=== PATIENT | male | born 1960 | race Caucasian/White ===

== ENCOUNTER 2017-05-14 16:01 | Inpatient (IN) | payer BC ==
[2017-05-14 16:18] VITALS: BMI 27.3
[2017-05-14] MEDS ORDERED: SODIUM CHLORIDE 1,000 ML IV SCH ×2 (16:30→21:00)
[2017-05-14 17:05] LABS: URINE APPEARANCE CLEAR; URINE BILIRUBIN NEGATIVE (NEGATIVE); URINE BLOOD 1+ (NEGATIVE); URINE COLOR LTYELLOW; URINE GLUCOSE (UA) NEGATIVE (NEGATIVE); URINE KETONE NEGATIVE (NEGATIVE); URINE LEUK ESTERASE NEGATIVE (NEGATIVE); URINE NITRITE NEGATIVE (NEGATIVE); URINE PROTEIN NEGATIVE (NEGATIVE); URINE UROBILINOGEN NEGATIVE mg/dL (0.2-1.0)
[2017-05-14 17:14] LABS: EPI CELLS RARE /HPF (FEW); URINE MUCUS RARE
[2017-05-14] MEDS ORDERED: ATORVASTATIN CA 80 MG TABLET (FP) PO ONE (17:14)
[2017-05-14] MEDS ORDERED: ASPIRIN 325 MG TABLET PO ONE (17:14)
--- NOTE | 2017-05-14 17:17 | PDOC ---
Attending Attestation - Resident Resident Name: IzabellaSoy - ED Attending Attestation I have performed the following: I have examined & evaluated the patient, The case was reviewed & discussed with the resident, I agree w/resident's findings & plan, Exceptions are as noted - HPI HPI: 05/14/17 17:32 The patient is a 56 year old male, with a significant past medical history of hypertension and elevated lipids (but not on any medication), who presents to the emergency department with acute onset of right sided numbness and tingling 1hr RETAIL SHIFT MANAGER, now resolved. Patient reports he was getting out of the car when he began to experience right arm weakness, numbness, and tingling, localized to his hand/wrist area. He also reports right leg weakness and tingling, as well as numbness to the right cheek. He denies any associated head trauma, LOC, changes in vision, headache, dizziness, or lightheadedness. He denies any chest pain, shortness of breath, diaphoresis, or palpitations. Does not take any blood thinners. No similar previous sxs. - Physicial Exam PE: 05/14/17 17:25 GENERAL: Awake, alert, and fully oriented, in no acute distress HEAD: No signs of trauma EYES: PERRLA, EOMI, sclera anicteric, conjunctiva clear ENT: Auricles normal inspection, hearing grossly normal, nares patent, oropharynx clear without exudates. Moist mucosa NECK: Normal ROM, supple, no lymphadenopathy, JVD, or masses LUNGS: Breath sounds equal, clear to auscultation bilaterally. No wheezes, and no crackles HEART: Regular rate and rhythm, normal S1 and S2, no murmurs, rubs or gallops ABDOMEN: Soft, nontender, normoactive bowel sounds. No guarding, no rebound. No masses EXTREMITIES: Normal range of motion, no edema. No clubbing or cyanosis. No cords, erythema, or tenderness NEUROLOGICAL: Normal speech, cranial nerves intact, negative pronator drift, 5/ 5 strength in all 4 extremities, normal sensation to light touch in all 4 extremities, normal cerebellar exam, normal gait, normal reflexes and tone SKIN: Warm, Dry, normal turgor, no rashes or lesions noted. - Medical Decision Making 05/14/17 17:25 56yo M hx elevated lipids (borderline, not on tx), elevated BP p/w resolved R facial, RUE and RLE numbness 1hr RETAIL SHIFT MANAGER. Vitals remarkable for hypertension to 190/ 120 and tachycardia to 110. Exam is unremarkable as symptoms have resolved, NIH stroke scale is 0. Concern for TIA vs CVA. In concert with Dr. Peacock from neurology, the decision was made to not give TPA as the patient is currently asymptomatic an NIH stroke scale is 0. Will treat conservatively with Lipitor 80 mg and aspirin 325 mg. We'll obtain MRI and admit. 05/14/17 19:47 Case discussed with resident Félix. Pt admitted to stroke bed under Dr. Orellana Case discussed in detail with admitting physician including history, physical exam and ancillary studies. Admitting physician has assumed care for the patient, will follow all pending diagnostics and will complete the evaluation and treatment. Discharge Disposition - Diagnosis TIA (transient ischemic attack) - Discharge Dispostion Condition at time of disposition: Stable Admit: Yes - Referrals Referrals: Kendra Rodriguez MD [Primary Care Provider] - - Patient Instructions - Post Discharge Activity NIH Stroke Scale - Last Known Well Date/Time & Onset Date Last Known Well: 05/14/17 Time Last Known Well: 16:15 - Initial Evaluation Level of consciousness: Alert Ask patient the month and their age: Answers both correctly Ask patient to open & close eyes; make fist and let go: Obeys both correctly Best gaze (horizontal eye movement): Normal Visual field testing: No visual field loss Facial paresis (Show teeth/raise eyebrows/close eyes tight): Normal symmetrical movement Motor Function: Left Arm: Normal Motor Function: Right Arm: Normal (extends arm 90 (or 45) degrees for 10 seconds without drift Motor Function: Left Leg: Normal (extends leg 30 degrees for 5 seconds without drift) Motor Function: Right Leg: Normal (extends leg 30 degrees for 5 seconds without drift) Limb Ataxia: No ataxia Sensory(Use pinprick test arms,legs,trunk,face/side to side): Normal Best language (Describe picture, name items, read sentences): No Aphasia Dysarthria (read several words): Normal articulation Extinction and Inattention: No abnormality - Total Score NIH Stroke Scale Score: 0
[2017-05-14 17:19] LABS: INR 0.86 (0.82-1.09); PROTHROMBIN TIME (PATIENT) 9.7 SEC (9.98-11.88)
[2017-05-14 17:26] LABS: BASO % 0.7 % (0-2.0); EOS % 0.8 % (0-4.5); HEMATOCRIT 47.9 % (35.4-49); HEMOGLOBIN 16.5 GM/dL (11.7-16.9); LYMPH % 22.6 % (8-40); MCH 32.5 pg (25.7-33.7); MCHC 34.5 g/dl (32.0-35.9); MEAN CELL VOLUME 94.1 fl (80-96); MONO % 7.5 % (3.8-10.2); NEUT % 68.4 % (42.8-82.8); PLATELET COUNT 287 K/MM3 (134-434); RBC 5.09 M/mm3 (4.00-5.60); RDW 12.3 % (11.9-15.9); WHITE BLOOD COUNT 6.4 K/mm3 (4.0-10.0)
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
--- NOTE | 2017-05-14 17:35 | PDOC ---
tPA Exclusion Checklist 0-3hr - Time Elapsed Time last known well: 03:35 - Thrombolytic Therapy Candidate Is the patient eligible for Thrombolytic Therapy?: No - Exclusion Criteria 0-3hr SBP greater than 185 or DBP greater than 110mmHg despite tx: No Recent IC/spinal surgery,head trauma or stroke w/in last 3mo: No Hx of previous IC hemorrhage, IC neoplasm, AVM or aneurysm: No Active internal bleeding: No Symptoms suggest subarachnoid hemorrhage: No CT demonstrates multilobar infarct(>1/3 cerebral hemiphere): No Arterial puncture at noncompressible site in previous 7 days: No - Ineligibility reason(s) Reasons No tPA given: Outside of window - delayed arrival (Pts. symptoms improved prior to arrival in ER), See reason(s) noted above
[2017-05-14] MEDS ORDERED: ASPIRIN 325 MG TABLET ONE (17:39)
[2017-05-14] MEDS ORDERED: ATORVASTATIN CA 80 MG TABLET (FP) ONE (17:40)
[2017-05-14 18:24] LABS: ANION GAP 9 (8-16); BILIRUBIN,TOTAL 0.3 mg/dL (0.2-1.0); BLOOD UREA NITROGEN 20 mg/dL (7-18); CALCIUM 8.8 mg/dL (8.5-10.1); CHLORIDE 108 mmol/L (98-107); CO2 25 mmol/L (21-32); CREATININE 0.9 mg/dL (0.7-1.3); GLUCOSE,RANDOM 91 mg/dL (74-106); POTASSIUM 4.2 mmol/L (3.5-5.1); SGOT/AST 26 U/L (15-37); SGPT/ALT 43 U/L (12-78); SODIUM 142 mmol/L (136-145); TOT PROT 7.2 g/dl (6.4-8.2)
[2017-05-14 18:25] LABS: ALK PHOS 54 U/L (45-117)
--- NOTE | 2017-05-14 18:27 | CON.NEURO ---
Consult Consult Specialty:: NEUROLOGY-LYUDMILA RICHTER Reason for Consultation:: TIA - History of Present Illness History of Present Illness: 56 y/o gentleman with hx. of hyperlipidemia. States 1 hour prior to arrival in ER had sudden onset sense of euphoria lasting minutes foillowed by right face numbness and tingling and right ulnar border of hand and patchy right leg numbness-these lasted for an hour and resolved. In addition had right leg subjective sense of weakness that lasted 20mns. Now has no new complaints. BP noted to be elevated . BP on arrival noted to be 190/130, came down to 174/116 spontaneously. NIH score-0 to my exam. - Smoking History Smoking history: Never smoked Home Medications - Allergies Allergies/Adverse Reactions: Allergies Allergy/AdvReac Type Severity Reaction Status Date / Time No Known Allergies Allergy Verified 05/14/17 16:17 - Home Medications Home Medications: Ambulatory Orders NK [No Known Home Medication] 05/14/17 Physical Exam-Neuro Vital Signs: Vital Signs Temperature 98.1 F 05/14/17 16:13 Pulse Rate 88 05/14/17 17:54 Respiratory Rate 15 05/14/17 17:54 Blood Pressure 169/112 05/14/17 17:54 O2 Sat by Pulse Oximetry (%) 98 05/14/17 17:54 Labs: CBC, BMP 05/14/17 14:55 INR, PTT INR 0.86 (0.82-1.09) 05/14/17 14:55 - Neuro Exam Level Of Consciousness: Yes: Alert, Oriented to Person, Oriented to Place, Oriented to Time Eyes: Yes: PERRL, PERRLA Speech: WNL Dominant Hand: Right Mini Mental Exam: Normal Gag: Present DTR's: 2+ Left Bicep, 2+ Right Bicep, 2+ Left Tricep, 2+ Right Tricep, 2+ Left Brachioradialis, 2+ Right Brachioradialis, 2+ Left Achilles, 2+ Right Achilles Response to light touch: Normal Response to pain prick: Normal Motor Strength: 5/5: Left Arm, Right Arm, Left Leg, Right Leg Gait: Normal (normal heel/toe walk.) Imaging - Results Cat Scan: Image Reviewed (Reported normal. Has basilar calcifications and calcification at bifurcation of MCA.) Assessment/Plan Pt. with vasculkar risk factors presented with sensory and motor symptoms, TIA, now without neurologic symptoms and normal exam. He is not a candidate for tPA. Will admit, stroke w/u including MRI brain, carotid doppler study, telemetry. Would place on [id number] daily. Thank you, Horacio Peacock MD [phone]
[2017-05-14] MEDS ORDERED: LISINOPRIL 5 MG TABLET (FP) ONE (21:10)
[2017-05-14] MEDS ORDERED: amLODIPine BESYLATE 5 MG TABLET (FP) ONE (21:10)
[2017-05-14] MEDS: LISINOPRIL 10 MG TABLET (FP) PO SCH (21:23)
[2017-05-14] MEDS: amLODIPine BESYLATE 10 MG TABLET (FP) PO SCH (21:23)
--- NOTE | 2017-05-14 21:30 | PN ---
Teaching Attending Note Name of Resident: Tyler Pop ATTENDING PHYSICIAN STATEMENT I saw and evaluated the patient. Chart, data, imaging reviewed. I reviewed the resident's note and discussed the case with the resident. I agree with the resident's findings and plan as documented. SUBJECTIVE: 56 y/o man with hx of uncontrolled HTN c/o right facial, upper extremity, and lower extremity numbness which started at about 3 pm on 05/14/16 after he left his car and last for about 30-45 mins. He endorse also right lower extremity weakness. His symptoms resolved completed upon arrival to ER. HE denied any headaches, dizziness, slurred speech, or problems with swallowing. He has not seen his PCP in a long time and has not been on medications for his HTN. Evaluated by neurology and was not a candidate for TPA. Initially his NIH scale was assessed as 0. CT of head showed no acute bleeds or infarcts. ABCD2 score I calculated as 3. Received high dose atorvastatin in ER , ASA. OBJECTIVE: Last Vital Signs Temp Pulse Resp BP Pulse Ox 98.1 F 74 16 154/102 99 05/14/17 16:13 05/14/17 20:23 05/14/17 20:23 05/14/17 20:23 05/14/17 20:23 General- NAD, appears comfortable, aaox3 HEENT- at, nc, no sinus tenderness neck- supple, no jvd cv-s1+s2+ rrr, no murmurs chest- cta b/l Neuro- CN 3-12 grossly intact, fluent speech, patellar reflexes 2+ b/l, motor intact in 4 extremities Abnormal Lab Results 05/14/17 05/14/17 05/14/17 05:20 14:55 14:55 MPV 7.0 L PT with INR 9.70 L Chloride BUN Urine Blood 1+ H 05/14/17 17:30 MPV PT with INR Chloride 108 H BUN [address] of head- no focal bleeds or infarcts seen EKG- NSR, likely LVH ASSESSMENT AND PLAN: #TIA r/o CVA - ABCD2 score- 3, normal head CT, not candidate for TPA as per neurology -admit to telemetry -f/u MRI report -neuro checks q4hrs -ASA 81mg po daily -high dose atorvastatin -transthoracic echo -b/l carotid duplex study -neurology f/u #Uncontrolled HTN - stage 2 -amlodipine 10mg daily -lisinopril 10mg daily -f/u with PCP #DVT ppx -heparin sc #Diet -2 g Na diet
--- NOTE | 2017-05-14 21:33 | HP ---
CHIEF COMPLAINT: numbness and tingling PCP: none HISTORY OF PRESENT ILLNESS: 56 year old male with a history of hypertension presents with the complaint of numbness and tingling on the R side of his face, right arm, and right leg. He states that the symptoms occurred around 3pm while he was driving his car and lasted for around 30 minutes. He states that he felt his jaw go numb and felt like he couldn't feel very much with his medial R arm and R leg. He states the feeling disappeared quickly but decided to come to the emergency room to get evaluated. Patient states he has high blood pressure, but doesn't take any medications for it and hasn't seen a primary care doctor in 5 years. He denies any associated motor weakness, chest pain, shortness of breath, blurry vision, double vision, nausea, vomiting. ER course was notable for: (1) EKG NSR possible atrial enlargement (2) Hypertensive at 169/112 (3) Recent Travel: none PAST MEDICAL HISTORY: hypertension PAST SURGICAL HISTORY: appendectomy for appendicitis w/ peritonitis Social History: Smoking: none Alcohol: 1 beer a day Drugs: none Family History: Allergies No Known Allergies Allergy (Verified 05/14/17 16:17) HOME MEDICATIONS: Home Medications Medication Instructions Recorded NK [No Known Home Medication] 05/14/17 REVIEW OF SYSTEMS CONSTITUTIONAL: Absent: fever, chills, diaphoresis, generalized weakness, malaise, loss of appetite, weight change HEENT: Absent: rhinorrhea, nasal congestion, throat pain, throat swelling, difficulty swallowing, mouth swelling, ear pain, eye pain, visual changes CARDIOVASCULAR: Absent: chest pain, syncope, palpitations, irregular heart rate, lightheadedness , peripheral edema RESPIRATORY: Absent: cough, shortness of breath, dyspnea with exertion, orthopnea, wheezing, stridor, hemoptysis GASTROINTESTINAL: Absent: abdominal pain, abdominal distension, nausea, vomiting, diarrhea, constipation, melena, hematochezia GENITOURINARY: Absent: dysuria, frequency, urgency, hesitancy, hematuria, flank pain, genital pain MUSCULOSKELETAL: Absent: myalgia, arthralgia, joint swelling, back pain, neck pain SKIN: Absent: rash, itching, pallor HEMATOLOGIC/IMMUNOLOGIC: Absent: easy bleeding, easy bruising, lymphadenopathy, frequent infections ENDOCRINE: Absent: unexplained weight gain, unexplained weight loss, heat intolerance, cold intolerance NEUROLOGIC: Absent: headache, focal weakness or paresthesias, dizziness, unsteady gait, seizure, mental status changes, bladder or bowel incontinence PSYCHIATRIC: Absent: anxiety, depression, suicidal or homicidal ideation, hallucinations. PHYSICAL EXAMINATION Vital Signs - 24 hr 05/14/17 05/14/17 05/14/17 16:13 17:08 17:13 Temperature 98.1 F Pulse Rate 114 H Pulse Rate [ 73 Apical] Respiratory 18 16 Rate Blood Pressure 193/130 Blood Pressure 174/116 [Right Arm] O2 Sat by Pulse 100 98 98 Oximetry (%) 05/14/17 05/14/17 17:54 20:23 Temperature Pulse Rate Pulse Rate [ 88 74 Apical] Respiratory 15 16 Rate Blood Pressure Blood Pressure 169/112 154/102 [Right Arm] O2 Sat by Pulse 98 99 Oximetry (%) GENERAL: Awake, alert, and fully oriented, in no acute distress. HEAD: Normal with no signs of trauma. EYES: Pupils equal, round and reactive to light, extraocular movements intact, sclera anicteric, conjunctiva clear. No lid lag. EARS, NOSE, THROAT: Ears normal, nares patent, oropharynx clear without exudates. Moist mucous membranes. NECK: Normal range of motion, supple without lymphadenopathy, JVD, or masses. LUNGS: Breath sounds equal, clear to auscultation bilaterally. No wheezes, and no crackles. No accessory muscle use. HEART: Regular rate and rhythm, normal S1 and S2 without murmur, rub or gallop. ABDOMEN: Soft, nontender, not distended, normoactive bowel sounds, no guarding, no rebound, no masses. No hepatomegaly or splenomegaly. MUSCULOSKELETAL: Normal range of motion at all joints. No bony deformities or tenderness. No CVA tenderness. UPPER EXTREMITIES: 2+ pulses, warm, well-perfused. No cyanosis. No clubbing. No peripheral edema. LOWER EXTREMITIES: 2+ pulses, warm, well-perfused. No calf tenderness. No peripheral edema. NEUROLOGICAL: Cranial nerves II-XII intact. Normal speech. Normal gait. PSYCHIATRIC: Cooperative. Good eye contact. Appropriate mood and affect. SKIN: Warm, dry, normal turgor, no rashes or lesions noted, normal capillary refill. Laboratory Results - last 24 hr 05/14/17 05/14/17 05/14/17 05:20 14:55 14:55 WBC 6.4 Cancelled Corrected WBC (auto) Cancelled RBC 5.09 Cancelled Hgb 16.5 Cancelled Hct 47.9 Cancelled MCV 94.1 Cancelled MCH 32.5 Cancelled MCHC 34.5 Cancelled RDW 12.3 Cancelled Plt Count 287 Cancelled MPV 7.0 L Cancelled Neutrophils % 68.4 Cancelled Lymphocytes % 22.6 Cancelled Monocytes % 7.5 Cancelled Eosinophils % 0.8 Cancelled Basophils % 0.7 Cancelled Nucleated RBC % Cancelled Platelet Estimate Cancelled Platelet Comment Cancelled PT with INR 9.70 L INR 0.86 Sodium Potassium Chloride Carbon Dioxide Anion Gap BUN Creatinine Creat Clearance w eGFR Random Glucose Calcium Total Bilirubin AST ALT Alkaline Phosphatase Creatine Kinase Troponin I Total Protein Albumin Triglycerides Cholesterol Total LDL Cholesterol HDL Cholesterol Urine Color Urine Appearance Urine pH Ur Specific [place] Urine Protein Urine Glucose (UA) Urine Ketones Urine Blood Urine Nitrite Urine Bilirubin Urine Urobilinogen Ur Leukocyte Esterase Urine WBC (Auto) Urine RBC (Auto) Ur Epithelial Cells Urine Mucus Blood Type Antibody Screen 05/14/17 05/14/17 05/14/17 14:55 14:55 14:55 WBC Corrected WBC (auto) RBC Hgb Hct MCV MCH MCHC RDW Plt Count MPV Neutrophils % Lymphocytes % Monocytes % Eosinophils % Basophils % Nucleated RBC % Platelet Estimate Platelet Comment PT with INR INR Sodium Cancelled Potassium Cancelled Chloride Cancelled Carbon Dioxide Cancelled Anion Gap Cancelled BUN Cancelled Creatinine Cancelled Creat Clearance w eGFR Cancelled Random Glucose Cancelled Calcium Cancelled Total Bilirubin Cancelled AST Cancelled ALT Cancelled Alkaline Phosphatase Cancelled Creatine Kinase Cancelled Troponin I Cancelled Total Protein Cancelled Albumin Cancelled Triglycerides Cancelled Cholesterol Cancelled Total LDL Cholesterol Cancelled HDL Cholesterol Cancelled Urine Color Ltyellow Urine Appearance Clear Urine pH 5.0 Ur Specific [place] 1.019 Urine Protein Negative Urine Glucose (UA) Negative Urine Ketones Negative Urine Blood 1+ H Urine Nitrite Negative Urine Bilirubin Negative Urine Urobilinogen Negative Ur Leukocyte Esterase Negative Urine WBC (Auto) <1 Urine RBC (Auto) 2 Ur Epithelial Cells Rare Urine Mucus Rare Blood Type O POSITIVE Antibody Screen Cancelled 05/14/17 05/14/17 05/14/17 17:30 17:30 18:45 WBC Corrected WBC (auto) RBC Hgb Hct MCV MCH MCHC RDW Plt Count MPV Neutrophils % Lymphocytes % Monocytes % Eosinophils % Basophils % Nucleated RBC % Platelet Estimate Platelet Comment PT with INR INR Sodium 142 Potassium 4.2 Chloride 108 H Carbon Dioxide 25 Anion Gap 9 BUN 20 H Creatinine 0.9 Creat Clearance w eGFR > 60 Random Glucose 91 Calcium 8.8 Total Bilirubin 0.3 AST 26 ALT 43 Alkaline Phosphatase 54 Creatine Kinase Troponin I < 0.02 Total Protein 7.2 Albumin 4.0 Triglycerides Cholesterol Total LDL Cholesterol HDL Cholesterol Urine Color Urine Appearance Urine pH Ur Specific [place] Urine Protein Urine Glucose (UA) Urine Ketones Urine Blood Urine Nitrite Urine Bilirubin Urine Urobilinogen Ur Leukocyte Esterase Urine WBC (Auto) Urine RBC (Auto) Ur Epithelial Cells Urine Mucus Blood Type O POSITIVE Antibody Screen Negative Home Medication List Medication Instructions Recorded Confirmed Type NK [No Known Home Medication] 05/14/17 05/14/17 History Active Medications Generic Name Dose Route Start Last Admin Trade Name Freq PRN Reason Stop Dose Admin Amlodipine Besylate 10 mg 05/14/17 21:15 05/14/17 21:23 Norvasc - PO 10 mg DAILY [facility] Administration Aspirin 81 mg 05/15/17 10:00 Asa - PO DAILY [facility] Atorvastatin Calcium 80 mg 05/15/17 10:00 Lipitor - PO DAILY [facility] Heparin Sodium (Porcine) 5,000 unit 05/14/17 22:00 Heparin - SQ TID [facility] Sodium Chloride 1,000 mls @ 42 mls/hr 05/14/17 21:00 05/14/17 21:03 Normal Saline - IV Not Given [facility] Lisinopril 10 mg 05/14/17 21:15 05/14/17 21:23 Prinivil PO 10 mg DAILY [facility] Administration ASSESSMENT/PLAN: 56 year old male with a history of hypertension presented to the hospital with unilateral numbness and tingling suggestive of TIA #Transient Ischemic Attack: ABCD2 TIA score of 3 warrants admission- symptoms have since resolved, TPA not indicated -admit to telemetry for cardiac monitoring -neurochecks q4h -EKG negaive -CT brain negative -MRI brain negative -order carotid doppler -order echocardiogram -A1C measurement -lipid profile -ASA 325 given in ED, continue with 81mg QD -Atorvastatin 80 given in ED, continue 80mg if tolerated -BP control with amlodipine and lisinopril -Neuro consult appreciated #Hypertension: patient was hypertensive on admission at 169/112 -Start amlodipine 10mg PO QD -Start lisinopril 10mg PO QD -BP check in AM #FEN Sodium controlled diet No standing fluids Check BMP in AM, replete lytes as necessary #Prophylaxis -Heparin 5000 SubQ TID #Disposition -Admit to telemetry for monitoring Visit type - Emergency Visit Emergency Visit: Yes Care time: The patient presented to the Emergency Department on the above date and was hospitalized for further evaluation of their emergent condition. - New Patient This patient is new to me today: No - Critical Care Critical Care patient: No
[2017-05-14] MEDS ORDERED: HEPARIN NA (PORCINE) 5,000 UNITS/ML 1ML VIAL ONE (22:07)
[2017-05-14] MEDS: HEPARIN NA (PORCINE) 5,000 UNITS/ML 1ML VIAL SQ SCH (22:24)
[2017-05-15] MEDS: HEPARIN NA (PORCINE) 5,000 UNITS/ML 1ML VIAL SQ SCH ×3 (05:29→21:23)
[2017-05-15 07:55] LABS: BASO % 0.9 % (0-2.0); EOS % 1.7 % (0-4.5); HEMATOCRIT 48.6 % (35.4-49); HEMOGLOBIN 16.5 GM/dL (11.7-16.9); LYMPH % 35.2 % (8-40); MCH 32.1 pg (25.7-33.7); MEAN CELL VOLUME 94.4 fl (80-96); MEAN PLT VOLUME 6.9 fl (7.5-11.1); MONO % 7.8 % (3.8-10.2); NEUT % 54.4 % (42.8-82.8); PLATELET COUNT 290 K/MM3 (134-434); RBC 5.14 M/mm3 (4.00-5.60); RDW 12.6 % (11.9-15.9)
[2017-05-15 08:09] LABS: CHLORIDE 105 mmol/L (98-107); POTASSIUM 4.1 mmol/L (3.5-5.1); SODIUM 140 mmol/L (136-145)
[2017-05-15 08:13] LABS: ANION GAP 11 (8-16); BLOOD UREA NITROGEN 15 mg/dL (7-18); CALCIUM 8.7 mg/dL (8.5-10.1); CHOLESTEROL 260 mg/dL (50-200); CO2 24 mmol/L (21-32); CREATININE 0.9 mg/dL (0.7-1.3); GLUCOSE,RANDOM 92 mg/dL (74-106); MAGNESIUM 2.2 mg/dL (1.8-2.4); PHOSPHOROUS 3.2 mg/dL (2.5-4.9); TRIGLYCERIDES 319 mg/dL (35-160)
[2017-05-15 08:39] LABS: HDL CHOLESTEROL 41 mg/dL (40-60); LDL CHOLESTEROL (ONLY SJRH) 174 mg/dL (5-100)
[2017-05-15] MEDS ORDERED: ATORVASTATIN CA 80 MG TABLET (FP) PO SCH ×2 (10:00)
[2017-05-15] MEDS: ASPIRIN 81 MG CHEWABLE TABLETS PO SCH (10:34)
[2017-05-15] MEDS: LISINOPRIL 10 MG TABLET (FP) PO SCH (10:34)
[2017-05-15] MEDS: amLODIPine BESYLATE 10 MG TABLET (FP) PO SCH (10:34)
--- NOTE | 2017-05-15 11:40 | EKG ---
Test Reason : Blood Pressure : / mmHG Vent. Rate : 099 BPM Atrial Rate : 099 BPM P-R Int : 162 ms QRS Dur : 090 ms QT Int : 348 ms P-R-T Axes : 050 -02 022 degrees QTc Int : 446 ms NORMAL SINUS RHYTHM POSSIBLE LEFT ATRIAL ENLARGEMENT POSSIBLE ANTERIOR INFARCT , AGE UNDETERMINED ABNORMAL ECG NO PREVIOUS ECGS AVAILABLE Confirmed by MD SHELLY, ERASMO ([id number]) on 05/15/2017 11:40:19 AM Referred By: Confirmed By:ERASMO BRAVO MD
--- NOTE | 2017-05-15 16:16 | PN ---
Progress Note (short form) - Note Progress Note: Subjective: no fever or chills, no cp or ABd pain. no weakness , numbness or tingling in arms Objective: Vital Signs: Last Vital Signs Temp Pulse Resp BP Pulse Ox 98.4 F 84 18 142/92 98 05/15/17 13:30 05/15/17 13:30 05/15/17 13:30 05/15/17 13:30 05/15/17 09:00 Laboratory Results - last 24 hr 05/14/17 05/14/17 05/14/17 05:20 14:55 14:55 WBC 6.4 Cancelled Corrected WBC (auto) Cancelled RBC 5.09 Cancelled Hgb 16.5 Cancelled Hct 47.9 Cancelled MCV 94.1 Cancelled MCH 32.5 Cancelled MCHC 34.5 Cancelled RDW 12.3 Cancelled Plt Count 287 Cancelled MPV 7.0 L Cancelled Neutrophils % 68.4 Cancelled Lymphocytes % 22.6 Cancelled Monocytes % 7.5 Cancelled Eosinophils % 0.8 Cancelled Basophils % 0.7 Cancelled Nucleated RBC % Cancelled Platelet Estimate Cancelled Platelet Comment Cancelled PT with INR 9.70 L INR 0.86 Sodium Potassium Chloride Carbon Dioxide Anion Gap BUN Creatinine Creat Clearance w eGFR Random Glucose Hemoglobin A1c % Calcium Phosphorus Magnesium Total Bilirubin AST ALT Alkaline Phosphatase Creatine Kinase Troponin I Total Protein Albumin Triglycerides Cholesterol Total LDL Cholesterol HDL Cholesterol Urine Color Urine Appearance Urine pH Ur Specific [place] Urine Protein Urine Glucose (UA) Urine Ketones Urine Blood Urine Nitrite Urine Bilirubin Urine Urobilinogen Ur Leukocyte Esterase Urine WBC (Auto) Urine RBC (Auto) Ur Epithelial Cells Urine Mucus Blood Type Antibody Screen 05/14/17 05/14/17 05/14/17 14:55 14:55 14:55 WBC Corrected WBC (auto) RBC Hgb Hct MCV MCH MCHC RDW Plt Count MPV Neutrophils % Lymphocytes % Monocytes % Eosinophils % Basophils % Nucleated RBC % Platelet Estimate Platelet Comment PT with INR INR Sodium Cancelled Potassium Cancelled Chloride Cancelled Carbon Dioxide Cancelled Anion Gap Cancelled BUN Cancelled Creatinine Cancelled Creat Clearance w eGFR Cancelled Random Glucose Cancelled Hemoglobin A1c % Calcium Cancelled Phosphorus Magnesium Total Bilirubin Cancelled AST Cancelled ALT Cancelled Alkaline Phosphatase Cancelled Creatine Kinase Cancelled Troponin I Cancelled Total Protein Cancelled Albumin Cancelled Triglycerides Cancelled Cholesterol Cancelled Total LDL Cholesterol Cancelled HDL Cholesterol Cancelled Urine Color Ltyellow Urine Appearance Clear Urine pH 5.0 Ur Specific [place] 1.019 Urine Protein Negative Urine Glucose (UA) Negative Urine Ketones Negative Urine Blood 1+ H Urine Nitrite Negative Urine Bilirubin Negative Urine Urobilinogen Negative Ur Leukocyte Esterase Negative Urine WBC (Auto) <1 Urine RBC (Auto) 2 Ur Epithelial Cells Rare Urine Mucus Rare Blood Type O POSITIVE Antibody Screen Cancelled 05/14/17 05/14/17 05/14/17 17:30 17:30 18:45 WBC Corrected WBC (auto) RBC Hgb Hct MCV MCH MCHC RDW Plt Count MPV Neutrophils % Lymphocytes % Monocytes % Eosinophils % Basophils % Nucleated RBC % Platelet Estimate Platelet Comment PT with INR INR Sodium 142 Potassium 4.2 Chloride 108 H Carbon Dioxide 25 Anion Gap 9 BUN 20 H Creatinine 0.9 Creat Clearance w eGFR > 60 Random Glucose 91 Hemoglobin A1c % Calcium 8.8 Phosphorus Magnesium Total Bilirubin 0.3 AST 26 ALT 43 Alkaline Phosphatase 54 Creatine Kinase Troponin I < 0.02 Total Protein 7.2 Albumin 4.0 Triglycerides Cholesterol Total LDL Cholesterol HDL Cholesterol Urine Color Urine Appearance Urine pH Ur Specific [place] Urine Protein Urine Glucose (UA) Urine Ketones Urine Blood Urine Nitrite Urine Bilirubin Urine Urobilinogen Ur Leukocyte Esterase Urine WBC (Auto) Urine RBC (Auto) Ur Epithelial Cells Urine Mucus Blood Type O POSITIVE Antibody Screen Negative 05/15/17 05/15/17 05/15/17 06:20 06:20 06:20 WBC 6.0 Corrected WBC (auto) RBC 5.14 Hgb 16.5 Hct 48.6 MCV 94.4 MCH 32.1 MCHC 34.0 RDW 12.6 Plt Count 290 MPV 6.9 L Neutrophils % 54.4 D Lymphocytes % 35.2 D Monocytes % 7.8 Eosinophils % 1.7 D Basophils % 0.9 Nucleated RBC % Platelet Estimate Platelet Comment PT with INR INR Sodium 140 Potassium 4.1 Chloride 105 Carbon Dioxide 24 Anion Gap 11 BUN 15 D Creatinine 0.9 Creat Clearance w eGFR Random Glucose 92 Hemoglobin A1c % 5.0 Calcium 8.7 Phosphorus 3.2 Magnesium 2.2 Total Bilirubin AST ALT Alkaline Phosphatase Creatine Kinase Troponin I Total Protein Albumin Triglycerides 319 H Cholesterol 260 H Total LDL Cholesterol 174 H HDL Cholesterol 41 Urine Color Urine Appearance Urine pH Ur Specific [place] Urine Protein Urine Glucose (UA) Urine Ketones Urine Blood Urine Nitrite Urine Bilirubin Urine Urobilinogen Ur Leukocyte Esterase Urine WBC (Auto) Urine RBC (Auto) Ur Epithelial Cells Urine Mucus Blood Type Antibody Screen Physical Exam: NAd Cv: RRR, no MRG Lungs : CTAB ext: no edema Abd: soft, NT, ND , NL BS Neuro: EOMI, no facial droop, round equal pupils reactive to light . tongue and uvula at mid line . strength 5/5 in upper and lower extremities proximally and distally, sensation to light touch. nose to finger NL Imaging: MRI, and CT of brain reports reviewed. Assessment/Plan: 56 y/o gentleman with h/o untreated HTN and no medical f/u who presented with R sided numbness. 1- TIA : no stroke on MRI. - secondary prophylaxis - asa - lipitor ( LDL 178) - echo in am - tele : with no A fib . need holter as outpt . - carotid doppler with no high grade stenosis - A1c 5. - stresed on importance of BP cntrol and medical f/u 2- HTN: cont meds 3- DVT px dc tomorrow after 24 hr of tele monitoring Visit type - Emergency Visit Emergency Visit: Yes ED Registration Date: 05/14/17 Care time: The patient presented to the Emergency Department on the above date and was hospitalized for further evaluation of their emergent condition. - New Patient This patient is new to me today: No - Critical Care Critical Care patient: No
[2017-05-16] MEDS: HEPARIN NA (PORCINE) 5,000 UNITS/ML 1ML VIAL SQ SCH ×2 (06:25→13:30)
--- NOTE | 2017-05-16 08:53 | PN ---
Progress Note (short form) - Note Progress Note: 56 y/o gentleman with hx. of hyperlipidemia. States 1 hour prior to arrival in ER had sudden onset sense of euphoria lasting minutes foillowed by right face numbness and tingling and right ulnar border of hand and patchy right leg numbness-these lasted for an hour and resolved. In addition had right leg subjective sense of weakness that lasted 20mns. Now has no new complaints. BP noted to be elevated . BP on arrival noted to be 190/130, came down to 174/116 spontaneously. NIH score-0 to my exam. FU : no new c/o , no further numbness MRI BRAIN -- no acute infarct Dopplers: min atherosclerotic disease - Smoking History Smoking history: Never smoked Home Medications - Allergies Allergies/Adverse Reactions: Allergies Allergy/AdvReac Type Severity Reaction Status Date / Time No Known Allergies Allergy Verified 05/14/17 16:17 - Home Medications Home Medications: Ambulatory Orders NK [No Known Home Medication] 05/14/17 Physical Exam-Neuro Vital Signs: Vital Signs Temperature 97.7 F 05/16/17 06:00 Pulse Rate 77 05/16/17 06:00 Respiratory Rate 16 05/16/17 06:00 Blood Pressure 138/89 05/16/17 06:00 O2 Sat by Pulse Oximetry (%) 98 05/15/17 21:00 Labs: CBCD WBC 6.0 K/mm3 (4.0-10.0) 05/15/17 06:20 RBC 5.14 M/mm3 (4.00-5.60) 05/15/17 06:20 Hgb 16.5 GM/dL (11.7-16.9) 05/15/17 06:20 Hct 48.6 % (35.4-49) 05/15/17 06:20 MCV 94.4 fl (80-96) 05/15/17 06:20 MCHC 34.0 g/dl (32.0-35.9) 05/15/17 06:20 RDW 12.6 % (11.9-15.9) 05/15/17 06:20 Plt Count 290 K/MM3 (134-434) 05/15/17 06:20 MPV 6.9 fl (7.5-11.1) L 05/15/17 06:20 CMP Sodium 140 mmol/L (136-145) 05/15/17 06:20 Potassium 4.1 mmol/L (3.5-5.1) 05/15/17 06:20 Chloride 105 mmol/L (98-107) 05/15/17 06:20 Carbon Dioxide 24 mmol/L (21-32) 05/15/17 06:20 Anion Gap 11 (8-16) 05/15/17 06:20 BUN 15 mg/dL (7-18) D 05/15/17 06:20 Creatinine 0.9 mg/dL (0.7-1.3) 05/15/17 06:20 Creat Clearance w eGFR > 60 (>60) 05/14/17 17:30 Calcium 8.7 mg/dL (8.5-10.1) 05/15/17 06:20 Total Bilirubin 0.3 mg/dL (0.2-1.0) 05/14/17 17:30 AST 26 U/L (15-37) 05/14/17 17:30 ALT 43 U/L (12-78) 05/14/17 17:30 Alkaline Phosphatase 54 U/L (45-117) 05/14/17 17:30 Total Protein 7.2 g/dl (6.4-8.2) 05/14/17 17:30 Albumin 4.0 g/dl (3.4-5.0) 05/14/17 17:30 - Neuro Exam Level Of Consciousness: Yes: Alert, Oriented to Person, Oriented to Place, Oriented to Time Eyes: Yes: PERRL, PERRLA Speech: WNL Dominant Hand: Right Mini Mental Exam: Normal Gag: Present DTR's: 2+ Left Bicep, 2+ Right Bicep, 2+ Left Tricep, 2+ Right Tricep, 2+ Left Brachioradialis, 2+ Right Brachioradialis, 2+ Left Achilles, 2+ Right Achilles Response to light touch: Normal Response to pain prick: Normal Motor Strength: 5/5: Left Arm, Right Arm, Left Leg, Right Leg Gait: Normal (normal heel/toe walk.) Imaging - Results Cat Scan: Image Reviewed (Reported normal. Has basilar calcifications and calcification at bifurcation of MCA.) Assessment/Plan Pt. with vasculkar risk factors presented with sensory and motor symptoms, TIA, now without neurologic symptoms and normal exam. likely small vessel (thalamic ) given distribution and RF agree ASA, statin and BP control would do middle or [employer] principal holter OK to dc from neuro-standpoint outpt FU thanks Dr Null [phone]
[2017-05-16] MEDS: LISINOPRIL 10 MG TABLET (FP) PO SCH (10:25)
[2017-05-16] MEDS: amLODIPine BESYLATE 10 MG TABLET (FP) PO SCH (10:25)
[2017-05-16] MEDS: ASPIRIN 81 MG CHEWABLE TABLETS PO SCH (10:26)
[2017-05-16 12:05] VITALS: BP 138/94; PULSE 74; TEMP 97.4
--- NOTE | 2017-05-16 15:27 | PN ---
Teaching Attending Note Name of Resident: Tyler Pop ATTENDING PHYSICIAN STATEMENT I saw and evaluated the patient. I reviewed the resident's note and discussed the case with the resident. I agree with the resident's findings and plan as documented. SUBJECTIVE: No fever or chills. has no numbness tingling or weakness. OBJECTIVE: NAd Cv: RRR, no MRG Lungs : CTAB ext: no edema Abd: soft, NT, ND , NL BS Neuro: EOMI, no facial droop, round equal pupils reactive to light . tongue and uvula at mid line . strength 5/5 in upper and lower extremities proximally and distally, sensation to light touch. nose to finger NL Assessment/Plan: 56 y/o gentleman with h/o untreated HTN and no medical f/u who presented with R sided numbness. 1- TIA : no stroke on MRI. - asa - lipitor ( LDL 178) . give 40 of lipitor , also expected to lower TG - echo with no significant abn - tele : with no A fib . need holter as outpt . - carotid doppler with no high grade stenosis - A1c 5. - f/u with card and neuro as out pt 2- HTN: cont meds dc home
--- NOTE | 2017-05-16 16:18 | DS ---
Physical Exam: SUBJECTIVE: Patient seen and examined at bedside. No acute complaints today. No more paresthesias reported. OBJECTIVE: Vital Signs Period Temp Pulse Resp BP Sys/Kulkarni Pulse Ox Last 24 Hr 97.4 F-98.3 F 74-81 16-20 133-156/83-96 97-98 PHYSICAL EXAM GENERAL: The patient is awake, alert, and fully oriented, in no acute distress. HEAD: Normal with no signs of trauma. EYES: PERRL, extraocular movements intact, sclera anicteric, conjunctiva clear. ENT: Ears normal, nares patent, oropharynx clear without exudates, moist mucous membranes. NECK: Trachea midline, full range of motion, supple. LUNGS: Breath sounds equal, clear to auscultation bilaterally, no wheezes, no crackles, no accessory muscle use. HEART: Regular rate and rhythm, S1, S2 without murmur, rub or gallop. ABDOMEN: Soft, nontender, nondistended, normoactive bowel sounds, no guarding, no rebound, no hepatosplenomegaly, no masses. EXTREMITIES: 2+ pulses, warm, well-perfused, no edema. NEUROLOGICAL: Cranial nerves II through XII grossly intact. Normal speech, gait not observed. PSYCH: Normal mood, normal affect. SKIN: Warm, dry, normal turgor, no rashes or lesions noted. HOSPITAL COURSE: Date of Admission:05/14/17 56 year old male with a history of hypertension presented with the complaint of numbness and tingling on the R side of his face, right arm, and right leg. He stated that the symptoms occurred around 3pm while he was driving his car and lasted for around 30 minutes. He stated that he felt his jaw go numb and felt like he couldn't feel very much with his medial R arm and R leg. Patient was admitted for the treatment of transient ischemic attack. Patient has not seen a primary care physician in 5 years. Patient was hypertensive in the emergency room and it was found that his cholesterol was elevated with a high LDL. Neurology saw patient and stated that he was not a candidate for TPA. Patient's blood pressure was controlled on amlodopine 10 and lisinopril 10. He was treated with aspirin and high-intensity statin. Patient was observed on telemetry with no acute events. Echocardiogram and carotid dopplers were performed and were negative for any pathologic process. Patient was with instructions to follow with his precast molder, his PCP, and counseled on importance of controlling his blood pressure, cholesterol and on diet and exercise. Date of Discharge: 05/16/17 Minutes to complete discharge: 35 Discharge Summary Reason For Visit: TCI Current Active Problems Hypercholesteremia (Chronic) Hypertension (Chronic) Condition: Improved - Instructions Diet, Activity, Other Instructions: You were admitted to the hospital for the evaluation and treatment of TIA ( transient ischemic attack) -This likely resulted due to your high blood pressure and high cholesterol. -Your echocardiogram and carotid dopplers did not show any significant abnormalities. -We treated you in the hospital with aspirin, atorvastatin for your cholesterol , and the blood pressure medications norvasc and lisinopril Medical Recommendations: 1. Take Atorvastatin 40mg by mouth once a day 2. Take Aspirin 81mg by mouth once a day 3. Take Amlodipine (norvasc) 10mg by mouth once a day 4. Take Lisinopril 10mg by mouth once a day 5. Make an appointment with a precast molder within 2 weeks of discharge to discuss further preventative care. We will provide a referral to Dr. Duong. 6. Please make an appointment with a primary care physician within 1 week of discharge. If you don't have one, please make an appointment in our outpatient office with Dr. Vidal Shannon. 7. Please make an appointment with neurologist Dr. Mancuso within 2 weeks of discharge - need repeat lipid profile in 6-8 weeks . If you experience any more numbness, tingling, weakness, or loss of sensation, please return to the emergency room immediately. Referrals: Vidal Shannon MD [Staff Physician] - 1 Week James Mancuso DO [Staff Physician] - 2 Weeks Rui Hernandez MD [Staff Physician] - 1 Week Disposition: HOME - Home Medications Comprehensive Discharge Medication List: Ambulatory Orders Amlodipine Besylate [Norvasc -] 10 mg PO DAILY #30 tablet 05/16/17 Aspirin [ASA -] 81 mg PO DAILY #30 tab.chew 05/16/17 Atorvastatin Ca [Lipitor] 40 mg PO HS #30 tablet 05/16/17 Lisinopril [Prinivil] 10 mg PO DAILY #30 tablet 05/16/17 This patient is new to me today: No Emergency Visit: No Critical Care patient: No - Discharge Referral Referred to [facility] Med P.C[facility] No
== END 2017-05-16 16:25 | disposition home or self-care (01) | DRG 69 ==
LOC: JER 16:01 → JERBED 19:48 → UNDOADMIN 22:32 → J4S 22:49
PROVIDERS: ADMIT Internal Medicine; ATTEND Internal Medicine
DX: G45.9 Transient cerebral ischemic attack, unspecified (principal); I10 Essential (primary) hypertension; E78.5 Hyperlipidemia, unspecified
CPT/HCPCS: 36415; 70450-TC; 70551-TC; 71045-TC; 80048; 80053; 80061; 81003; 81015; 83036; 83721; 83735; 84100; 84484; 85025; 85610; 86850; 86900; 86901; 93005; 93010; 93306-TC; 93880-TC; 99285-25; J1644

== ENCOUNTER 2023-09-29 05:53 | Emergency (ER) | payer BC ==
[2023-09-29 06:00] VITALS: BP 136/86; PULSE 105; RESP 20; TEMP 97.9; BMI 27.3
== END 2023-09-29 06:56 | disposition home or self-care (01) ==
LOC: JER 05:53
PROC: 2W3JX1Z Immobilization of Right Finger using Splint (ICD-10-PCS; principal; 2023-09-29)
DX: M20.011 Mallet finger of right finger(s) (principal); X50.1XXA Overexertion from prolonged static or awkward postures, initial encounter
CPT/HCPCS: 73130-TC-RT-FY; 99283-25